=== PATIENT | male | born 1945 | race Native Hawaiian/Other Pacific Islander ===

== ENCOUNTER 2022-05-19 16:01 | Emergency (ER) | payer OTHER ==
[~2022-05-19] VITALS: Ht 182.9 cm; Wt 104.3 kg
[2022-05-19 16:59] LABS: PLATELET COUNT 211 K/uL (142-355)
[2022-05-19 17:08] LABS: POTASSIUM 4.1 mmol/L (3.6-5.2)
[2022-05-19 19:33] VITALS: BP 183/82
== END 2022-05-19 19:33 | disposition home or self-care (01) ==
LOC: ED 16:01
PROVIDERS: Family Medicine
DX: I10 Essential (primary) hypertension (principal); I69.351 Hemiplegia and hemiparesis following cerebral infarction affecting right dominant side; Z79.899 Other long term (current) drug therapy; Z51.81 Encounter for therapeutic drug level monitoring
CPT/HCPCS: 80053; 81002; 82550; 84484; 85027; 85610; 85730; 93005; 96374; 99284; J1940

== ENCOUNTER 2022-06-19 13:37 | Outpatient (CLI) | payer OTHER ==
[2022-06-19 14:01] LABS: PLATELET COUNT 208 K/uL (142-355)
== END 2022-06-19 18:59 | disposition home or self-care (01) ==
LOC: LABW 13:37
PROVIDERS: ATTEND Internal Medicine
DX: N18.32 Chronic kidney disease, stage 3b (principal); R53.83 Other fatigue; E11.9 Type 2 diabetes mellitus without complications
CPT/HCPCS: 36415; 82330; 82570; 82607; 82728; 82746; 83036; 83540; 83550; 83735; 84100; 84156; 84439; 84443; 85027; 85652; 86038; 86431